=== PATIENT | female | born 1970 | race Caucasian/White ===

== ENCOUNTER 2018-03-15 17:52 | Emergency (ER) | payer SELFPAY ==
[~2018-03-15] VITALS: Ht 160 cm; Wt 58.1 kg
[2018-03-15 19:02] LABS: INTERNATIONAL NORMALIZED RATIO 1.11 (0.93-1.1); PROTHROMBIN TIME 11.5 Seconds (9.6-11.5)
[2018-03-15 19:28] LABS: MEAN CORPUSCULAR HEMOGLOBIN 27.3 pg (27.0-34.8); MEAN CORPUSCULAR HGB CONC 32.3 g/dL (32.4-35.8); MEAN CORPUSCULAR VOLUME 84.6 fL (80-100); MEAN PLATELET VOLUME 7.9 fL (7.4-10.4); PLATELET COUNT 507 x10^3/uL (130-400); RED BLOOD COUNT 2.61 x10^6/uL (3.82-5.3); RED CELL DISTRIBUTION WIDTH 15.9 % (9.6-15.2)
[2018-03-15 19:30] LABS: BASOPHILS # (AUTO) 0.01 x10^3/uL (0-0.1); BASOPHILS % (AUTO) 0 % (0-1); EOSINOPHILS # (AUTO) 0.05 x10^3/uL (0-0.4); EOSINOPHILS % (AUTO) 1 % (1-7); LYMPHOCYTES # (AUTO) 0.94 x10^3/uL (1-3.4); LYMPHOCYTES % (AUTO) 11 % (22-44); MD MORPH REVIEW ONLY; MONOCYTES # (AUTO) 0.62 x10^3/uL (0.2-0.8); MONOCYTES % (AUTO) 8 % (2-9); NEUTROPHILS % (AUTO) 81 % (42-75)
[2018-03-15 19:31] LABS: HYPOCHROMIA 1+
[2018-03-15 19:33] LABS: <PLATELET ESTIMATE> INCREASED; LARGE PLATELETS 1+; TOXIC GRAN 1+
[2018-03-15 20:47] VITALS: BP 130/78
[2018-03-15 21:02] VITALS: BP 119/71
[2018-03-15 22:00] VITALS: BP 123/76
[2018-03-15 22:18] VITALS: BP 132/84
[2018-03-15 22:34] VITALS: BP 130/77
[2018-03-15 23:40] VITALS: BP 134/83
[2018-03-16 00:40] VITALS: BP 132/80
== END 2018-03-16 01:07 | disposition home or self-care (01) ==
LOC: ED 23:09
DX: D09.9 Carcinoma in situ, unspecified (principal); R79.1 Abnormal coagulation profile
CPT/HCPCS: 36415; 36430; 85025; 85610; 85730; 86850; 86900; 86923; 99285; P9016

== ENCOUNTER → 2018-03-15 | Outpatient (CLI) | payer SELFPAY ==
[~2018-03-15] MED LIST: LIDOCAINE-MPF 1%, 2ML ONE
== END | disposition home or self-care (01) ==
LOC: RAD 08:15
PROVIDERS: ATTEND Internal Medicine Hematology & Oncology
DX: C56.9 Malignant neoplasm of unspecified ovary (principal)
CPT/HCPCS: 36569; 76937; 77001; C1751; J3490